=== PATIENT | female | born 1985 | race African-American/Black ===

== ENCOUNTER 2016-12-27 10:36 | Emergency (ER) | payer OTHER ==
[2016-12-27 10:47] VITALS: BP 127/66; PULSE 81; TEMP 99.5; BMI 37.8
--- NOTE | 2016-12-27 11:54 | PDOC ---
History of Present Illness - General Chief Complaint: Cold Symptoms Stated Complaint: STREP THROAT, COUGH Time Seen by Provider: 12/27/16 11:26 History Source: Patient (onset) Exam Limitations: No Limitations - History of Present Illness Initial Comments: 12/27/16 11:51 Patient is here with all of family complaints of chills, fevers, general body aches. 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 4-year-old was sick before and treated 2 weeks ago for strep throat which resolved. Mother was concerned may have recurred or has other illness. She complaints of congestion, runny nose, and cough. Denied fever, has taken no medications 12/27/16 11:52 Timing/Duration: reports: getting worse Severity: reports: mild Associated Symptoms: reports: denies symptoms, facial pain, fever/chills, nasal congestion Past History - Travel Traveled outside of the country in the last 30 days: No Close contact w/someone who was outside of country & ill: No - Past Medical History Allergies/Adverse Reactions: Allergies Allergy/AdvReac Type Severity Reaction Status Date / Time cefaclor [From [facility]] Allergy Verified 12/27/16 10:44 Home Medications: Ambulatory Orders Oseltamivir Phosphate [Tamiflu -] 75 mg PO BID #10 capsule 12/27/16 Asthma: Yes Suicide Attempt (Hx): No - Surgical History Abdominal Surgery: Yes - Family Disease History Family Disease History: Heart Disease: Father ([place] ) - Reproductive History (#): 3 Para: 1 Therapeutic (s) & number: Yes (elective x 1) - Immunization History Td Vaccination: No - Psycho/Social/Smoking Cessation Hx Anxiety: No Suicidal Ideation: No Smoking Status: Yes Smoking History: Current every day smoker Have you smoked in the past 12 months: Yes Number of Cigarettes Smoked Daily: 4 Information on smoking cessation initiated: No Hx Alcohol Use: No Drug/Substance Use Hx: No Substance Use Type: None Hx Substance Use Treatment: No Respiratory Specific PMHX - Complaint Specific PMHX Bronchitis: No Pneumonia: No Review of Systems - Review of Systems Able to Perform ROS?: Yes Is the patient limited Tanzanian proficient: Yes Constitutional: Yes: Symptoms Reported, See HPI, Malaise HEENTM: No: Symptoms Reported Respiratory: Yes: Symptoms reported, See HPI, Cough, Shortness of Breath, Wheezing ABD/GI: Yes: Symptoms Reported, See HPI Musculoskeletal: No: Symptoms Reported Integumentary: Yes: Symptoms Reported, See HPI Neurological: Yes: Symptoms reported, See HPI, Headache All Other Systems: Reviewed and Negative *Physical Exam - Vital Signs Last Vital Signs Temp Pulse Resp BP Pulse Ox 99.5 F 81 18 127/66 97 12/27/16 10:44 12/27/16 10:44 12/27/16 10:44 12/27/16 10:44 12/27/16 10:44 - Physical Exam General Appearance: Yes: Nourished, Appropriately Dressed, Apparent Distress, Mild Distress HEENT: positive: SUMANTH, Normal ENT Inspection, TMs Normal, Pharynx Normal, Pharyngeal Erythema, Nasal Congestion, Rhinorrhea (clear) Neck: positive: Supple, Lymphadenopathy (R), Lymphadenopathy (L). negative: Tender Respiratory/Chest: positive: Lungs Clear (course), Normal Breath Sounds. negative: Rales, Rhonchi, Wheezing Cardiovascular: positive: Regular Rate Gastrointestinal/Abdominal: positive: Normal Bowel Sounds, Soft. negative: Tender Extremity: positive: Normal Capillary Refill, Normal Inspection Integumentary: positive: Normal Color, Dry, Warm, Pale Neurologic: positive: stone chimney mason II-XII NML intact, Fully Oriented, Alert, Normal Mood/ Affect, Normal Response, Motor Strength 5/5 Progress Note - Progress Note Progress Note: Upper respiratory infection, mild. Will check influenza Medical Decision Making - Medical Decision Making 12/27/16 12:41 Influenza test returned negative however daughters and mothers tests were positive for flu a. Will treat as all family lives together and patient complains of same complaints. *DC/Admit/Observation/Transfer Diagnosis at time of Disposition: Influenzal acute upper respiratory infection - Discharge Dispostion Disposition: HOME Condition at time of disposition: Stable Admit: No - Patient Instructions Printed Discharge Instructions: DI for Viral Upper Respiratory Infection -- Adult Additional Instructions: Jennifer's Rest, drink lots of fluids: Teas, water, soups, Pedialyte Saltwater gargles Steamy showers/seem to face break up mucus Old-fashioned treatments help! Avoid contact with others until fevers and cough resolved as this is very contagious Lots of handwashing and good hygiene Continue [id number] medications for symptomatic relief Tylenol or Motrin for fever and pain Take all of Tamiflu as directed: 1 tab every 12 hours for 5 days Followup with private physician in one to 2 days as needed or if worsening Return to emergency department for worsened symptoms, fevers, dehydration Influenza takes between 5 and 7 days for resolution To not participate in any activity, work, or school until fevers and cough are gone for at least one day - Post Discharge Activity Work/School Note: Back to Work
== END 2016-12-27 12:55 | disposition home or self-care (01) ==
LOC: JERFT 10:36
DX: J11.1 Influenza due to unidentified influenza virus with other respiratory manifestations (principal); F17.210 Nicotine dependence, cigarettes, uncomplicated
CPT/HCPCS: 87804; 99281-25

== ENCOUNTER 2020-08-10 07:53 | Emergency (ER) | payer OTHER ==
[2020-08-10] MEDS ORDERED: IBUPROFEN 600 MG TABLET (FP) PO ONE ×2 (08:00→08:24)
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
[2020-08-10 08:03] VITALS: BP 128/94; PULSE 93; TEMP 98.3; BMI 37.0
--- OUTSIDE RECORDS SUMMARY | 2020-08-10 08:25 | XMS ---
:1985 Author Organization [facility] Care Team Providers Name Role Phone ED STAFF PHYSICIAN, STAFF Unavailable Unavailable ED STAFF PHYSICIANSEDRICK Unavailable Unavailable ZUNASSIGNED Unavailable Unavailable ANILA Rausch Unavailable Unavailable Re-disclosure Warning The records that you are about to access may contain information from federally- assisted alcohol or drug abuse programs. If such information is present, then the following federally mandated warning applies: This information has been disclosed to you from records protected by federal confidentiality rules (42 CFR part 2). The federal rules prohibit you from making any further disclosure of this information unless further disclosure is expressly permitted by the written consent of the person to whom it pertains or as otherwise permitted by 42 CFR part 2. A general authorization for the release of medical or other information is NOT sufficient for this purpose. The Federal rules restrict any use of the information to criminally investigate or prosecute any alcohol or drug abuse patient.The records that you are about to access may contain highly sensitive health information, the redisclosure of which is protected by Article 27-F of the [facility] Public Health law. If you continue you may haveaccess to information: Regarding HIV / AIDS; Provided by facilities licensed or operated by the [facility] Office of Mental Health; or Provided by the [facility] Office for People With Developmental Disabilities. If such information is present, then the following [facility] mandated warning applies: This information has been disclosed to you from confidential records which are protected by state law. State law prohibits you from making any further disclosure of this information without the specific written consent of the person to whom it pertains, or as otherwise permitted by law. Any unauthorized further disclosure in violation of state law may result in a fine or assisted sentence or both. A general authorization for the release of medical or other information is NOT sufficient authorization for further disclosure. Allergies and Adverse Reactions Type Description Substance Reaction Status Data Source(s ) Drug allergy Cyclobenzaprine HCl Cyclobenzaprine HCl hives Activ e [facility] ([facility] Drug allergy Cyclobenzaprine HCl Cyclobenzaprine HCl hives Activ e eCW2 ([facility] [employer]) Encounters Encounter Providers Location Date Indications Data Source(s ) Emergency Attender: ANILA Ferrer 07/18/2020 [facility] LAttender: 07:37:00 PM Medical Center STAFF ED STAFF EDT - PHYSICIANAdmitter: 07/18/2020 ANILA GRAFF 11:31:00 PM LReferrer: EDT ZUNASSIGNED [facility] discharged. [facility] 12[facility] [place] [facility] [employer] 10/28/2019 [facility] 12:00:00 AM EST [facility] [place] [employer] [employer] 10/06/2019 [facility]CW[facility] 12:00:00 AM EST [facility] [place] [employer] [employer] Emergency Attender: SEDRICK Ferrer 09/23/2019 [facility] ED STAFF 11:11:00 AM EST Medical C enter PHYSICIANAttend - 09/23/2019 er: STAFF ED 03:30:00 PM EST STAFF PHYSICIANAdmitt er: SEDRICK ED STAFF PHYSICIAN [facility]. [facility]2019 12:00:00 eCW2 ([facility] [place] [facility] [employer] [facility] [facility] Emergency H 08/03/2019 10:50:00 [facility] EDT - 08/03/2019 Cente r 01:21:00 PM EDT Patient discharged. Emergency H 07/14/2019 11:37:00 AM EDT - 019 [facility] 02:56:00 PM EDT Patient discharged. [facility] 07/07/2019 12:00:00 eCW2 ([facility] [place] [facility] AM ED[facility] [employer] [facility]) Emergency H 06/15/2019 10:10:00 [facility] EDT - 06/15/2019 Cente r 01:52:00 PM EDT Patient discharged. Medications Medication Brand Start Product Dose Route Administrative Pharm[facility] Indications Reaction Description Data Name Date Form Instructions Instructions Source(s) MetroGel-Va UNK active 1 eCW2 ginal 0.75 2020 application (P lanned % 12:00: at bedtime [facility] [employer] [facility]) Metronidazo Metron active 1 table t eCW2 le 500 MG idazol 2018 (Planned Oral Tablet e 500 12:00: [facility] MG 00 AM - [facility] [employer] [facility]) Metronidazo Metron active 1 table t eCW2 le 500 MG idazol 2018 (Planned Oral Tablet e 500 12:00: [facility] MG 00 AM - [facility]T [employer]) Metronidazo Metron 08/24/ active 1 table t eCW2 le 500 MG idazol 2018 (Planned Oral Tablet e 500 12:00: Paren [facility] MG 00 AM - [facility]T [employer]) Metronidazo Metron active 1 table t eCW2 le 500 MG idazol 2019 (Planned Oral Tablet e 500 12:00: Paren [facility] MG 00 AM - [facility] [employer]) Insurance Providers Payer name Policy type Policy ID Covered Covered constitution party's Policy P viktoriya / Coverage constitution party ID relationship to Emery Inf ormation type emery [place] [id number] SP [id number] HMO O MVP/HHP O [id number] 01 [id number] 100 MVP Medicaid [id number] S [id number] 01 Managed Care Dental [id number] S [id number] [employer] MKD [place] [id number] S [id number] Vision MKD [facility] [id number] S [id number] 1 FFS Medicaid (DO NOT USE) [id number] S [id number] 01 [facility] Auth PCP Not MVNHC/YHC/GHC [facility] [id number] S [id number] 1 Options MKD Medicaid [id number] S [id number] Regular Clinic Visit [facility] Medicaid [id number] S [id number] Managed Care Problems, Conditions, and Diagnoses Code Display Name Description Problem Type Effective Data Dates Source(s) F17.210 Nicotine NICOTINE Diagnosis 07/18/2020 [facility] dependence, DEPENDENCE, 07:37:00 PM Medical cigarettes, CIGARETTES, EDT Center uncomplicated UNCOMPLICATED J45.909 Unspecified UNSPECIFIED Diagnosis 07/18/2020 [facility] asthma, ASTHMA, 07:37:00 PM Medical uncomplicated UNCOMPLICATED EDT Center K29.70 Gastritis, GASTRITIS, Diagnosis 07/18/2020 [facility] unspecified, UNSPECIFIED, 07:37:00 PM Medical without bleeding WITHOUT BLEEDING EDT Ce nter R10.9 Unspecified UNSPECIFIED Diagnosis 07/18/2020 [facility] abdominal pain ABDOMINAL PAIN 07:37:00 PM Medic al EDT Center R42 Dizziness and DIZZINESS AND Diagnosis 09/23/2019 [facility] giddiness GIDDINESS 11:11:00 AM Medical EST Center R11.2 Nausea with NAUSEA WITH Diagnosis 09/23/2019 [facility] vomiting, VOMITING, 11:11:00 AM Medical unspecified UNSPECIFIED EST Center J40 Bronchitis, not BRONCHITIS, NOT Diagnosis 08/03/2019 [facility] specified as acute SPECIFIED ACUTE 10:50:00 AM Medical or chronic OR CHRONIC EDT Center J03.90 Acute tonsillitis, ACUTE TONSILLITIS, Diagnosis 9 [facility] unspecified UNSPECIFIED 10:50:00 AM Medical EDT Center R05 Cough COUGH Diagnosis 08/03/2019 [facility] 10:50:00 AM Medical EDT Center N39.0 Urinary tract URINARY TRACT Diagnosis 07/14/2019 [facility] infection, site INFECTION, SITE 11:37:00 AM Med ical not specified NOT SPECIFIED EDT Center R11.10 Vomiting, VOMITING, Diagnosis 07/14/2019 [facility] unspecified UNSPECIFIED 11:37:00 AM Medical EDT Center I10 Essential ESSENTIAL Diagnosis 06/15/2019 [facility] (primary) (PRIMARY) 10:10:00 AM Medical hypertension HYPERTENSION EDT Center L84 Corns and CORNS AND Diagnosis 06/15/2019 [facility] callosities CALLOSITIES 10:10:00 AM Medical EDT Center Y99.9 Unspecified UNSPECIFIED Diagnosis 06/15/2019 [facility] external cause EXTERNAL CAUSE 10:10:00 AM Medic al status STATUS EDT Center Y92.[address] IN UNSP Diagnosis 06/15/2019 [facility] in unspecified NON-INSTITUT 10:10:00 AM Medical non-institutional (PRIVATE) EDT Center (private) RESIDENCE PLACE residence as the place of occurrence of the external cause Y93.01 Activity, walking, ACTIVITY, WALKING, Diagnosis 9 [facility] marching and MARCHING AND 10:10:00 AM Medical hiking HIKING EDT Center X58.XXXA Exposure to other EXPOSURE TO OTHER Diagnosis 06/15/2019 [facility] specified factors, SPECIFIED FACTORS, 10:10:00 AM Medical initial encounter INITIAL ENCOUNTER EDT Center S90.852A Superficial SUPERFICIAL Diagnosis 06/15/2019 [facility] foreign body, left FOREIGN BODY, LEFT 10:10:00 AM Medical foot, initial FOOT, INITIAL EDT Center encounter ENCOUNTER M79.673 Pain in PAIN IN Diagnosis 06/15/2019 [facility] unspecified foot UNSPECIFIED FOOT 10:10:00 AM edical EDT Center Surgeries/Procedures Procedure Description Date Indications Data Source(s) [facility] 05/29/2020 eCW2 ([facility] 12:00:00 AM [facility]) CHLAMYDIA, MEHRAN 05/29/2020 eCW2 ([facility] 12:00:00 AM EDT [facility] [employer]) GONORRHEA, MEHRAN 05/29/2020 eCW2 ([facility] 12:00:00 AM EDT [facility] [employer]) SPECIMEN HANDLING 05/29/2020 eCW2 (Plan [facility] 12:00:00 AM EDT [facility] [employer]) Wet [facility] 10/28/2019 eCW2 ([facility]anned 12:00:00 AM EST [facility] [place] [employer] [facility]) HIV Rapid Test INSTI 08/24/2019 eCW2 (P lanned 12:00:00 AM EDT [facility] [place] [employer] [facility]) CHLAMYDIA, MEHRAN 08/24/2019 eCW2 ([facility]anned 12:00:00 AM EDT [facility] [employer] [facility]) GONORRHEA, MEHRAN 08/24/2019 eCW2 ([facility] 12:00:00 AM EDT [facility] [employer]) [place] 07/07/2019 eCW2 ([facility]anned 12:00:00 AM EDT [facility] [employer] [facility]) CHLAMYDIA, MEHRAN 07/07/2019 eCW2 ([facility]anned 12:00:00 AM EDT [facility] [employer]) Results ID Date Data Source HematologyRou.[id number] 07/18/2020 09:50:00 PM EDT [facility] 0400 Name Value Range Interpretation Description Data Sup porting Code Source(s) Document(s ) Leukocytes 4.4-11.0 Above high <content [facility] [#/volume] in normal styleCode="Bold [facility] Blood by ">White Blood Medical Automated count Cell Count Center </content>11.94 KCUMM H<content styleCode="Ital ics"> (4.4-11.0 KCUMM)</content > Hemoglobin 12.3-16. <content [facility] [Mass/volume] in 0 styleCode="Bold [facility] Blood ">Hemoglobin Medical </content>13.4 Center G/DL<content styleCode="Ital ics"> (12.3-16.0 G/DL)</content> Erythrocytes 4.0-5.1 <content [facility] [#/volume] in styleCode="Bold [facility] Blood by ">Red Blood Medical Automated count Cell Count Center </content>4.54 MCUMM<content styleCode="Ital ics"> (4.0-5.1 MCUMM)</content > Hematocrit 36.0-46. <content [facility] [Volume 0 styleCode="Bold [facility] Fraction] of ">Hematocrit Medical Blood by </content>40.7 Center Automated count %<content styleCode="Ital ics"> (36.0-46.0 %)</content> Erythrocyte mean 32.0-37. <content [facility] corpuscular 0 styleCode="Bold [facility] hemoglobin ">Mean Corpus. Medical concentration Hgb Center [Mass/volume] by Concentration Automated count (MCHC) </content>32.9 G/DL<content styleCode="Ital ics"> (32.0-37.0 G/DL)</content> Erythrocyte mean 80.0-100 <content [facility] corpuscular .0 styleCode="Bold [facility] volume [Entitic ">Mean Medical volume] by Corpuscular Center Automated count Volume </content>89.6 FL<content styleCode="Ital ics"> (80.0-100.0 FL)</content> Erythrocyte 11.5-14. <content [facility] distribution 5 styleCode="Bold [facility] width [Ratio] by ">Red Cell Medical Automated count Distribution Center Width </content>12.1 %<content styleCode="Ital ics"> (11.5-14.5 %)</content> Erythrocyte mean 26.0-34. <content [facility] corpuscular 0 styleCode="Bold [facility] hemoglobin ">Mean Medical [Entitic mass] Corposcular Center by Automated Hemoglobin count </content>29.5 PG<content styleCode="Ital ics"> (26.0-34.0 PG)</content> Platelets 130-400 <content [facility] [#/volume] in styleCode="Bold [facility] Blood by ">Platelet Medical Automated count Count Center </content>344 KCUMM<content styleCode="Ital ics"> (130-400 KCUMM)</content > Platelet mean 8.0-11.0 <content [facility] volume [Entitic styleCode="Bold [facility] volume] in Blood ">Mean Platelet Medical by Automated Volume Center count </content>9.0 FL<content styleCode="Ital ics"> (8.0-11.0 FL)</content> UNK 0.0 <content [facility] styleCode="Bold [facility] ">Nucleated Red Medical Blood Cell Center Count </content>0.00 KCUMM<content styleCode="Ital ics"> (0.0 KCUMM)</content > UNK 0 <content [facility] styleCode="Bold [facility] ">Nucleated Red Medical Blood Cell Center </content>0.0 /100<content styleCode="Ital ics"> (0 /100)</content> ID Date Data Source GFR(Creatinine).[id number] 07/18/2020 09:50:00 PM EDT [facility] 0-0400 Name Value Range Interpretation Code Description Data Mabel rce(s) Supporting Document(s ) UNK > 60 <content [facility] styleCode="Bold"> Medical Cent er EGFR </content>236 GFR<content styleCode="Italic s"> (> 60 GFR)</content> ID Date Data Source [id number] 07/18/2020 09:50:00 PM EDT [facility] Name Value Range Interpretation Description Data Sup porting Code Source(s) Document(s ) Potassium 3.5-5.3 <content [facility] [Moles/volume] styleCode="Jaquelin Latos[facility] in Serum or d">Potassium Medical Plasma </content>4.2 Center MEQ/L<content styleCode="Danielle lics"> (3.5-5.3 MEQ/L)</conten t> Chloride 98-107 Above high normal <content [facility] [Moles/volume] styleCode="[facility] in Serum or d">Chloride Medical Plasma </content>108 Center MEQ/L H<content styleCode="Danielle lics"> (98-107 MEQ/L)</conten t> Sodium 137-145 <content [facility] [Moles/volume] styleCode="[facility] in Serum or d">Sodium Medical Plasma </content>139 Center MEQ/L<content styleCode="Danielle lics"> (137-145 MEQ/L)</conten t> Creatinine 0.5-1.3 Below low normal <content [facility] [Mass/volume] styleCode="[facility] in Serum or d">Creatinine Medical Plasma </content>0.4 Center MG/DL L<content styleCode="Danielle lics"> (0.5-1.3 MG/DL)</conten t> Glucose 74-106 Above high normal <content [facility] [Mass/volume] styleCode="[facility] [place] in Serum or d">Glucose Medical Plasma </content>135 Center MG/DL H<content styleCode="Danielle lics"> (74-106 MG/DL)</conten t> UNK 7-17 <content [facility] styleCode="[facility] d">BUN Medical </content>13 Center MG/DL<content styleCode="Danielle lics"> (7-17 MG/DL)</conten t> Carbon 22-30 Below low normal <content [facility] dioxide, total styleCode="[facility] [place] [Moles/volume] d">Carbon Medical in Serum or Dioxide Center Plasma </content>19 MEQ/L L<content styleCode="Dnaielle lics"> (22-30 MEQ/L)</conten t> Calcium 8.4-10.2 <content [facility] [Mass/volume] styleCode="[facility] in Serum or d">Calcium Medical Plasma </content>10.1 Center MG/DL<content styleCode="Danielle lics"> (8.4-10.2 MG/DL)</conten t> UNK > 60 <content [facility] styleCode="[facility] d">EGFR Medical </content>236 Center GFR<content styleCode="Danielle lics"> (> 60 GFR)</content> ID Date Data Source Urinalysis.[id number] 07/18/2020 09:05:00 PM EDT [facility] 0 Name Value Range Interpretation Description Data Sup porting Code Source(s) Document(s ) UNK NEGATIVE <content [facility] styleCode="[facility]aqu[facility] d">Urine Medical Bilirubin Center </content>NEGA TIVE <content styleCode="Danielle lics"> (NEGATIVE )</content> Color of Urine YELLOW <content [facility] styleCode="Jaqu[facility] d">Color, Medical Urine Center </content>YELL OW <content styleCode="Danielle lics"> (YELLOW )</content> Glucose NEGATIVE <content [facility] [Mass/volume] styleCode="[facility] in Urine by d">Urine Medical Test strip Glucose Center </content>NEGA TIVE MG/DL<content styleCode="Danielle lics"> (NEGATIVE MG/DL)</conten t> UNK CLEAR <content [facility] styleCode="[facility] [place] d">Urine Medical Clarity Center </content>RADHA R <content styleCode="Danielle lics"> (CLEAR )</content> Specific 1.015-1.02 Above high <content [facility] gravity of 5 normal styleCode="[facility] Urine by Test d">Urine Medical strip Specific Center [place] </content>>= 1.030 H<content styleCode="Danielle lics"> (1.015-1.025 )</content> Hemoglobin NEGATIVE <content [facility] [Presence] in styleCode="Jaquelin Reina Urine by Test d">Urine Blood Medical strip </content>SMAL Center L <content styleCode="Danielle lics"> (NEGATIVE )</content> Protein NEGATIVE <content [facility] [Mass/volume] styleCode="[facility] in Urine by d">Urine Medical Test strip Protein Center </content>100 MG/DL<content styleCode="Danielle lics"> (NEGATIVE MG/DL)</conten t> pH of Urine by 4.5-8.0 <content [facility] Test strip styleCode="[facility] [place] d">Urine pH Medical </content>6.0 Center <content styleCode="Danielle lics"> (4.5-8.0 )</content> Ketones NEGATIVE <content [facility] [Mass/volume] styleCode="[facility] in Urine by d">Urine Medical Test strip Ketone Center </content>40 MG/DL<content styleCode="Danielle lics"> (NEGATIVE MG/DL)</conten t> UNK NONE SEEN <content Saint styleCode="[facility] [place] d">Epithelial Medical Cell Center </content>5 - 10 HPF<content styleCode="Danielle lics"> (NONE SEEN HPF)</content> Leukocyte NEGATIVE <content [facility] esterase styleCode="[facility] [Presence] in d">Urine Medical Urine by Test Leukocyte Center strip </content>NEGA TIVE <content styleCode="Danielle lics"> (NEGATIVE )</content> Nitrite NEGATIVE <content [facility] [Presence] in styleCode="[facility]aquelin Reina Urine by Test d">Urine Medical strip Nitrite Center </content>NEGA TIVE <content styleCode="Danielle lics"> (NEGATIVE )</content> UNK 0-3 <content [facility] styleCode="[facility] [place] d">Urine White Medical Blood Cell Center </content>10 - 20 HPF<content styleCode="Danielle lics"> (0-3 HPF)</content> Urobilinogen 0.2-1.0 <content [facility] [Units/volume] styleCode="[facility] in Urine by d">Urine Medical Test strip Urobilinogen Center </content>0.2 MG/DL<content styleCode="Danielle lics"> (0.2-1.0 MG/DL)</conten t> ID Date Data Source [id number] 07/18/2020 09:05:00 PM EDT [facility] -0400 Name Value Range Interpretation Description Data Sup porting Code Source(s) Document(s ) Cannabinoids <content [facility] [Presence] in styleCode="[facility]elin [facility] Urine by Screen d">Cannabinoid Medical method >50 ng/mL s Center </content>PRES UMPTIVE POSITIVE NG/ML (Reference Range: not available)<br/ > ID Date Data Source [id number] 03/16/2020 12:00:00 AM EDT [facility] Name Value Range Interpretation Code Description Data Mabel rce(s) Supporting Document(s ) 2018-nCoV [facility] RNA XXX MEHRAN+probe- Imp This lab was ordered by [facility] and reported by [employer] ID Date Data Source Urinalysis.[id number] 09/23/2019 12:40:00 PM EST [facility] 0 Name Value Range Interpretation Description Data Sup porting Code Source(s) Document(s ) Color of Urine YELLOW <content [facility] styleCode="Jaquelin Latosha d">Color, Medical Urine Center </content>YELL OW <content styleCode="Danielle lics"> (YELLOW )</content> UNK CLEAR <content [facility] styleCode="[facility] [place] d">Urine Medical Clarity Center </content>RADHA R <content styleCode="Danielle lics"> (CLEAR )</content> Glucose NEGATIVE <content [facility] [Mass/volume] styleCode="[facility]elin [facility] in Urine by d">Urine Medical Test strip Glucose Center </content>NEGA TIVE MG/DL<content styleCode="Danielle lics"> (NEGATIVE MG/DL)</conten t> UNK NEGATIVE <content Saint styleCode="[facility] [place] d">Urine Medical Bilirubin Center </content>SMAL L <content styleCode="Danielle lics"> (NEGATIVE )</content> Ketones NEGATIVE <content [facility] [Mass/volume] styleCode="[facility] in Urine by d">Urine Medical Test strip Ketone Center </content>40 MG/DL<content styleCode="Danielle lics"> (NEGATIVE MG/DL)</conten t> Hemoglobin NEGATIVE <content [facility] [Presence] in styleCode="Jaquelin [facility]ina Urine by Test d">Urine Blood Medical strip </content>SMAL Center L <content styleCode="Danielle lics"> (NEGATIVE )</content> Specific 1.015-1.02 Above high <content [facility] gravity of 5 normal styleCode="Jaquelin Reina Urine by Test d">Urine Medical strip Specific Center [place] </content>>= 1.030 H<content styleCode="Danielle lics"> (1.015-1.025 )</content> Protein NEGATIVE <content [facility] [Mass/volume] styleCode="Jaquelin Reina in Urine by d">Urine Medical Test strip Protein Center </content>100 MG/DL<content styleCode="Danielle lics"> (NEGATIVE MG/DL)</conten t> pH of Urine by 4.5-8.0 <content [facility] Test strip styleCode="[facility] [place] d">Urine pH Medical </content>6.0 Center <content styleCode="Danielle lics"> (4.5-8.0 )</content> Urobilinogen 0.2-1.0 <content [facility] [Units/volume] styleCode="Jaquelin [facility] in Urine by d">Urine Medical Test strip Urobilinogen Center </content>0.2 MG/DL<content styleCode="Danielle lics"> (0.2-1.0 MG/DL)</conten t> UNK 0-3 <content Saint styleCode="Jaquelin Latosha d">Urine Red Medical Blood Cell Center </content>10 - 20 HPF<content styleCode="Danielle lics"> (0-3 HPF)</content> Leukocyte NEGATIVE <content [facility] esterase styleCode="[facility] [place] [Presence] in d">Urine Medical Urine by Test Leukocyte Center strip </content>NEGA TIVE <content styleCode="Danielle lics"> (NEGATIVE )</content> Nitrite NEGATIVE <content Saint [Presence] in styleCode="[facility] [place] Urine by Test d">Urine Medical strip Nitrite Center </content>NEGA TIVE <content styleCode="Danielle lics"> (NEGATIVE )</content> UNK NONE SEEN <content Saint styleCode="Jaquelin Latosha d">Urine Mucus Medical </content>MANY Center HPF<content styleCode="Danielle lics"> (NONE SEEN HPF)</content> UNK 0-3 <content Saint styleCode="Jaquelin Latosha d">Urine White Medical Blood Cell Center </content>5 - 10 HPF<content styleCode="Danielle lics"> (0-3 HPF)</content> UNK NONE SEEN <content Saint styleCode="Jaquelin Latosha d">Epithelial Medical Cell Center </content>2-5 HPF<content styleCode="Danielle lics"> (NONE SEEN HPF)</content> ID Date Data Source Microbiology.[id number] 09/23/2019 12:40:00 PM EST [facility] 500 Name Value Range Interpretation Code Description Data Mabel rce(s) Supporting Document(s ) UNK <item><content [facility] styleCode="Bold"> Medical Cent er Culture Status </content>
<t able><tbody><tr>< td>Specimen Number:</td><td>[id number]</td></tr ><tr><td>Sample Collection Date/Time: </td><td>09/23/20 12:40 PM</td></tr><tr>< td>Specimen Source:</td><td>U RINE</td></tr><tr ><td>Culture Status:</td><td>P reliminary </td></tr><tr><td >Culture Report:</td><td>C ulture in progress </td></tr><tr><td >Urine Culture:</td><td> Collection Plate Date: 09/23/2019 12:49 </td></tr></tbody ></table></item> UNK <item><content [facility] styleCode="Bold"> Medical [facility] Culture Report </content>
<t able><tbody><tr>< td>Specimen Number:</td><td>[id number]</td></tr ><tr><td>Sample Collection Date/Time: </td><td>09/23/20 12:40 PM</td></tr><tr>< td>Specimen Source:</td><td>U RINE</td></tr><tr ><td>Urine Culture:</td><td> Collection Plate Date: 09/23/2019 12:49 </td></tr><tr><td >Culture Status:</td><td>P reliminary </td></tr><tr><td >Culture Report:</td><td>C ulture in progress </td></tr></tbody ></table></item> ID Date Data Source Liver 09/23/2019 12:10:[address] [facility] Profile.[id number] Name Value Range Interpretation Description Data Sup porting Code Source(s) Document(s ) Aspartate 14-36 <content [facility] aminotransferase styleCode="Bold"> Paul hs [Enzymatic Aspartate Medical activity/volume] Aminotransferase Center in Serum or Plasma (AST) </content>22 IU/L<content styleCode="Italic s"> (14-36 IU/L)</content> Alanine 7-30 <content [facility] aminotransferase styleCode="Bold"> Paul hs [Enzymatic Alanine Medical activity/volume] Aminotransferase Center in Serum or Plasma (ALT) </content>28 IU/L<content styleCode="Italic s"> (7-30 IU/L)</content> UNK 0.0-0.3 <content Saint styleCode="Bold"> [facility] Bilirubin, Direct Medical </content>< 0.2 Center MG/DL<content styleCode="Italic s"> (0.0-0.3 MG/DL)</content> Alkaline 38-126 <content Saint phosphatase styleCode="Bold"> [facility] [Enzymatic Alkaline Medical activity/volume] Phosphatase (ALP) Cente r in Serum or Plasma </content>72 IU/L<content styleCode="Italic s"> (38-126 IU/L)</content> Bilirubin.total 0.2-1.3 <content [facility] [Mass/volume] in styleCode="Bold"> [facility] Serum or Plasma Bilirubin Total Medical </content>0.4 Center MG/DL<content styleCode="Italic s"> (0.2-1.3 MG/DL)</content> Albumin 3.5-5.0 <content [facility] [Mass/volume] in styleCode="Bold"> [facility] Serum or Plasma Albumin Medical </content>4.6 Center G/DL<content styleCode="Italic s"> (3.5-5.0 G/DL)</content> ID Date Data Source HematologyRou.[id number] 09/23/2019 12:10:00 PM SUMA Herrera nt [facility] 0500 Name Value Range Interpretation Description Data Sup porting Code Source(s) Document(s ) Erythrocytes 4.0-5.1 <content [facility] [#/volume] in styleCode="Bold [facility] Blood by ">Red Blood Medical Automated count Cell Count Center </content>4.34 MCUMM<content styleCode="Ital ics"> (4.0-5.1 MCUMM)</content > Leukocytes 4.4-11.0 Above high <content Saint [#/volume] in normal styleCode="Bold [facility] Blood by ">White Blood Medical Automated count Cell Count Center </content>15.65 KCUMM H<content styleCode="Ital ics"> (4.4-11.0 KCUMM)</content > Erythrocyte mean 80.0-100 <content [facility] corpuscular .0 styleCode="Bold Latosha volume [Entitic ">Mean Medical volume] by Corpuscular Center Automated count Volume </content>89.9 FL<content styleCode="Ital ics"> (80.0-100.0 FL)</content> Hemoglobin 12.3-16. <content [facility] [Mass/volume] in 0 styleCode="Bold [facility] Blood ">Hemoglobin Medical </content>13.1 Center G/DL<content styleCode="Ital ics"> (12.3-16.0 G/DL)</content> Hematocrit 36.0-46. <content [facility] [Volume 0 styleCode="Bold Lat[facility] Fraction] of ">Hematocrit Medical Blood by </content>39.0 Center Automated count %<content styleCode="Ital ics"> (36.0-46.0 %)</content> Erythrocyte 11.5-14. <content [facility] distribution 5 styleCode="Bold [facility] width [Ratio] by ">Red Cell Medical Automated count Distribution Center Width </content>12.4 %<content styleCode="Ital ics"> (11.5-14.5 %)</content> Erythrocyte mean 26.0-34. <content [facility] corpuscular 0 styleCode="Bold [facility] hemoglobin ">Mean Medical [Entitic mass] Corposcular Center by Automated Hemoglobin count </content>30.2 PG<content styleCode="Ital ics"> (26.0-34.0 PG)</content> Erythrocyte mean 32.0-37. <content [facility] corpuscular 0 styleCode="Bold [facility] hemoglobin ">Mean Corpus. Medical concentration Hgb Center [Mass/volume] by Concentration Automated count (MCHC) </content>33.6 G/DL<content styleCode="Ital ics"> (32.0-37.0 G/DL)</content> Platelet mean 8.0-11.0 <content Saint volume [Entitic styleCode="Bold Lat[facility]ha volume] in Blood ">Mean Platelet Medical by Automated Volume Center count </content>8.7 FL<content styleCode="Ital ics"> (8.0-11.0 FL)</content> Platelets 130-400 <content Saint [#/volume] in styleCode="Bold [facility] Blood by ">Platelet Medical Automated count Count Center </content>349 KCUMM<content styleCode="Ital ics"> (130-400 KCUMM)</content > UNK 0 <content Saint styleCode="Bold Latosha ">Nucleated Red Medical Blood Cell Center </content>0.0 /100<content styleCode="Ital ics"> (0 /100)</content> UNK 0.0 <content Saint styleCode="Bold Latosha ">Nucleated Red Medical Blood Cell Center Count </content>0.00 KCUMM<content styleCode="Ital ics"> (0.0 KCUMM)</content > ID Date Data Source GFR(Creatinine).[id number] 09/23/2019 12:10:00 PM [facility] 0-0500 Name Value Range Interpretation Code Description Data Mabel rce(s) Supporting Document(s ) UNK > 60 <content [facility] styleCode="Bold"> Medical Cent er EGFR </content>152 GFR<content styleCode="Italic s"> (> 60 GFR)</content> ID Date Data Source CHMROUTINECCDA.[id number] 09/23/2019 12:10:00 PM [facility] -0500 Name Value Range Interpretation Description Data Sup porting Code Source(s) Document(s ) Lipase 23-300 <content [facility] [Enzymatic styleCode="Bold Medical activity/vo ">Lipase Center lume] in </content>204 Serum or IU/L<content Plasma styleCode="Ital ics"> (23-300 IU/L)</content> UNK 30-110 <content [facility] styleCode="Bold Medical ">Amylase Center </content>86 IU/L<content styleCode="Ital ics"> (30-110 IU/L)</content> ID Date Data Source [facility].[id number] 09/23/2019 12:10:00 PM EST [facility] Center Name Value Range Interpretation Description Data Sup porting Code Source(s) Document(s ) Sodium 137-145 <content [facility] [Moles/volume] in styleCode="Bold"> [facility] Serum or Plasma Sodium Medical </content>141 Center MEQ/L<content styleCode="Italic s"> (137-145 MEQ/L)</content> Potassium 3.5-5.3 <content [facility] [Moles/volume] in styleCode="Bold"> [facility] Serum or Plasma Potassium Medical </content>3.7 Center MEQ/L<content styleCode="Italic s"> (3.5-5.3 MEQ/L)</content> Creatinine 0.5-1.3 <content [facility] [Mass/volume] in styleCode="Bold"> [facility] Serum or Plasma Creatinine Medical </content>0.5 Center MG/DL<content styleCode="Italic s"> (0.5-1.3 MG/DL)</content> Chloride 98-107 <content [facility] [Moles/volume] in styleCode="Bold"> [facility] Serum or Plasma Chloride Medical </content>103 Center MEQ/L<content styleCode="Italic s"> (98-107 MEQ/L)</content> Carbon dioxide, 22-30 <content [facility] total styleCode="Bold"> [facility] [Moles/volume] in Carbon Dioxide Medical Serum or Plasma </content>27 Center MEQ/L<content styleCode="Italic s"> (22-30 MEQ/L)</content> UNK 7-17 <content [facility] styleCode="Bold"> [facility] BUN </content>13 Medical MG/DL<content Center styleCode="Italic s"> (7-17 MG/DL)</content> Calcium 8.4-10. <content [facility] [Mass/volume] in 2 styleCode="Bold"> [facility] Serum or Plasma Calcium Medical </content>9.9 Center MG/DL<content styleCode="Italic s"> (8.4-10.2 MG/DL)</content> Glucose 74-106 Above high <content [facility] [Mass/volume] in normal styleCode="Bold"> [facility] Serum or Plasma Glucose Medical </content>113 Center MG/DL H<content styleCode="Italic s"> (74-106 MG/DL)</content> UNK > 60 <content [facility] styleCode="Bold"> [facility] EGFR Medical </content>152 Center GFR<content styleCode="Italic s"> (> 60 GFR)</content> Aspartate 14-36 <content [facility] aminotransferase styleCode="Bold"> [facility] [Enzymatic Aspartate Medical activity/volume] Aminotransferase Center in Serum or Plasma (AST) </content>22 IU/L<content styleCode="Italic s"> (14-36 IU/L)</content> Alanine 7-30 <content [facility] aminotransferase styleCode="Bold"> [facility] [Enzymatic Alanine Medical activity/volume] Aminotransferase Center in Serum or Plasma (ALT) </content>28 IU/L<content styleCode="Italic s"> (7-30 IU/L)</content> Albumin 3.5-5.0 <content [facility] [Mass/volume] in styleCode="Bold"> [facility] Serum or Plasma Albumin Medical </content>4.6 Center G/DL<content styleCode="Italic s"> (3.5-5.0 G/DL)</content> Bilirubin.total 0.2-1.3 <content [facility] [Mass/volume] in styleCode="Bold"> [facility] Serum or Plasma Bilirubin Total Medical </content>0.4 Center MG/DL<content styleCode="Italic s"> (0.2-1.3 MG/DL)</content> Alkaline 38-126 <content [facility] phosphatase styleCode="Bold"> [facility] [Enzymatic Alkaline Medical activity/volume] Phosphatase (ALP) Cente r in Serum or Plasma </content>72 IU/L<content styleCode="Italic s"> (38-126 IU/L)</content> ID Date Data Source Gonorrhea, MEHRAN.1 08/24/2019 12:00:00 AM EDT eCW2 ([facility]) Name Value Range Interpretation Description Data Source(s ) Supporting Code Document(s ) Negative Negative Neisseria eCW2 (Planned gonorrhoeae, [facility] [employer] [facility]) ID Date Data Source Chlamydia, MEHRAN.0 08/24/2019 12:00:00 AM EDT eCW2 ([facility]) Name Value Range Interpretation Description Data Source(s ) Supporting Code Document(s ) Negative Negative Chlamydia eCW2 (Planned trachomatis, [facility] [employer] [facility]) ID Date Data Source Urinalysis.[id number] 07/14/2019 01:58:00 PM EDT [facility] 0 Name Value Range Interpretation Description Data Sup porting Code Source(s) Document(s ) UNK CLEAR <content Saint styleCode="Jaquelin Latosha d">Urine Medical Clarity Center </content>RADHA R <content styleCode="Danielle lics"> (CLEAR )</content> Color of Urine YELLOW <content Saint styleCode="Jaquelin Latosha d">Color, Medical Urine Center </content>YELL OW <content styleCode="Danielle lics"> (YELLOW )</content> Specific 1.015-1.02 Above high <content Saint gravity of 5 normal styleCode="Jaquelin Latosha Urine by Test d">Urine Medical strip Specific Center [place] </content>>= 1.030 H<content styleCode="Danielle lics"> (1.015-1.025 )</content> Glucose NEGATIVE <content Saint [Mass/volume] styleCode="Jaquelin Latosha in Urine by d">Urine Medical Test strip Glucose Center </content>NEGA TIVE MG/DL<content styleCode="Danielle lics"> (NEGATIVE MG/DL)</conten t> UNK NEGATIVE <content Saint styleCode="Jaquelin Latosha d">Urine Medical Bilirubin Center </content>SMAL L <content styleCode="Danielle lics"> (NEGATIVE )</content> Ketones NEGATIVE <content Saint [Mass/volume] styleCode="Jaquelin Latosha in Urine by d">Urine Medical Test strip Ketone Center </content>>=80 MG/DL<content styleCode="Danielle lics"> (NEGATIVE MG/DL)</conten t> Hemoglobin NEGATIVE <content Saint [Presence] in styleCode="[place]aqu[place] Urine by Test d">Urine Blood Medical strip </content>TRAC Center E <content styleCode="Danielle lics"> (NEGATIVE )</content> Leukocyte NEGATIVE <content [facility] esterase styleCode="[place]elin [place] [Presence] in d">Urine Medical Urine by Test Leukocyte Center strip </content>NEGA TIVE <content styleCode="Danielle lics"> (NEGATIVE )</content> Protein NEGATIVE <content Saint [Mass/volume] styleCode="Jaquelin Latosha in Urine by d">Urine Medical Test strip Protein Center </content>100 MG/DL<content styleCode="Danielle lics"> (NEGATIVE MG/DL)</conten t> pH of Urine by 4.5-8.0 <content Saint Test strip styleCode="[place] d">Urine pH Medical </content>6.0 Center <content styleCode="Danielle lics"> (4.5-8.0 )</content> Urobilinogen 0.2-1.0 <content Saint [Units/volume] styleCode="[place] in Urine by d">Urine Medical Test strip Urobilinogen Center </content>0.2 MG/DL<content styleCode="Danielle lics"> (0.2-1.0 MG/DL)</conten t> Nitrite NEGATIVE <content Saint [Presence] in styleCode="[place] Urine by Test d">Urine Medical strip Nitrite Center </content>NEGA TIVE <content styleCode="Danielle lics"> (NEGATIVE )</content> UNK <content Saint styleCode="Jaquelin Latosha d">Epithelial Medical Cell Center </content>10 - 20 LPF (Reference Range: not available)<br/ > UNK 0-3 <content Saint styleCode="Jaquelin Latosha d">Urine White Medical Blood Cell Center </content>0-3 HPF<content styleCode="Danielle lics"> (0-3 HPF)</content> UNK NONE SEEN <content Saint styleCode="Jaquelin Latosha d">Urine Mucus Medical </content>MANY Center LPF<content styleCode="Danielle lics"> (NONE SEEN LPF)</content> UNK 0-3 <content Saint styleCode="Jaquelin Latosha d">Urine Red Medical Blood Cell Center </content>3-5 HPF<content styleCode="Danielle lics"> (0-3 HPF)</content> ID Date Data Source Liver 07/14/2019 12:29:[address] [facility] Profile.[id number] Name Value Range Interpretation Description Data Sup porting Code Source(s) Document(s ) Alanine 7-30 <content [facility] aminotransferase styleCode="Bold"> [facility] [Enzymatic Alanine Medical activity/volume] Aminotransferase Center in Serum or Plasma (ALT) </content>17 IU/L<content styleCode="Italic s"> (7-30 IU/L)</content> Alkaline 38-126 <content [facility] phosphatase styleCode="Bold"> [facility] [Enzymatic Alkaline Medical activity/volume] Phosphatase (ALP) Cente r in Serum or Plasma </content>61 IU/L<content styleCode="Italic s"> (38-126 IU/L)</content> Aspartate 14-36 <content [facility] aminotransferase styleCode="Bold"> [facility] [Enzymatic Aspartate Medical activity/volume] Aminotransferase Center in Serum or Plasma (AST) </content>18 IU/L<content styleCode="Italic s"> (14-36 IU/L)</content> Albumin 3.5-5.0 <content [facility] [Mass/volume] in styleCode="Bold"> [facility] Serum or Plasma Albumin Medical </content>4.7 Center G/DL<content styleCode="Italic s"> (3.5-5.0 G/DL)</content> Bilirubin.total 0.2-1.3 <content [facility] [Mass/volume] in styleCode="Bold"> [facility] Serum or Plasma Bilirubin Total Medical </content>0.4 Center MG/DL<content styleCode="Italic s"> (0.2-1.3 MG/DL)</content> UNK 0.0-0.3 <content [facility] styleCode="Bold"> [facility] Bilirubin, Direct Medical </content>< 0.2 Center MG/DL<content styleCode="Italic s"> (0.0-0.3 MG/DL)</content> ID Date Data Source HematologyRou.[id number] 07/14/2019 12:29:00 PM EDT [facility] 0400 Name Value Range Interpretation Description Data Sup porting Code Source(s) Document(s ) Erythrocytes 4.0-5.1 <content [facility] [#/volume] in styleCode="Bold [facility] Blood by ">Red Blood Medical Automated count Cell Count Center </content>4.57 MCUMM<content styleCode="Ital ics"> (4.0-5.1 MCUMM)</content > Leukocytes 4.4-11.0 Above high <content Saint [#/volume] in normal styleCode="Bold Lat[facility] Blood by ">White Blood Medical Automated count Cell Count Center </content>16.97 KCUMM H<content styleCode="Ital ics"> (4.4-11.0 KCUMM)</content > Hematocrit 36.0-46. <content [facility] [Volume 0 styleCode="Bold Latosha Fraction] of ">Hematocrit Medical Blood by </content>40.3 Center Automated count %<content styleCode="Ital ics"> (36.0-46.0 %)</content> Hemoglobin 12.3-16. <content [facility] [Mass/volume] in 0 styleCode="Bold Latosha Blood ">Hemoglobin Medical </content>13.8 Center G/DL<content styleCode="Ital ics"> (12.3-16.0 G/DL)</content> Erythrocyte mean 80.0-100 <content [facility] corpuscular .0 styleCode="Bold Latosha volume [Entitic ">Mean Medical volume] by Corpuscular Center Automated count Volume </content>88.2 FL<content styleCode="Ital ics"> (80.0-100.0 FL)</content> Erythrocyte mean 26.0-34. <content [facility] corpuscular 0 styleCode="Bold Latosha hemoglobin ">Mean Medical [Entitic mass] Corposcular Center by Automated Hemoglobin count </content>30.2 PG<content styleCode="Ital ics"> (26.0-34.0 PG)</content> Erythrocyte 11.5-14. <content [facility] distribution 5 styleCode="Bold Latosha width [Ratio] by ">Red Cell Medical Automated count Distribution Center Width </content>12.7 %<content styleCode="Ital ics"> (11.5-14.5 %)</content> Platelets 130-400 <content Saint [#/volume] in styleCode="Bold Lat[facility] Blood by ">Platelet Medical Automated count Count Center </content>337 KCUMM<content styleCode="Ital ics"> (130-400 KCUMM)</content > Platelet mean 8.0-11.0 <content Saint volume [Entitic styleCode="Bold Latosha volume] in Blood ">Mean Platelet Medical by Automated Volume Center count </content>8.7 FL<content styleCode="Ital ics"> (8.0-11.0 FL)</content> Erythrocyte mean 32.0-37. <content [facility] corpuscular 0 styleCode="Bold Latosha hemoglobin ">Mean Corpus. Medical concentration Hgb Center [Mass/volume] by Concentration Automated count (MCHC) </content>34.2 G/DL<content styleCode="Ital ics"> (32.0-37.0 G/DL)</content> UNK 0 <content Saint styleCode="Bold Latosha ">Nucleated Red Medical Blood Cell Center </content>0.0 /100<content styleCode="Ital ics"> (0 /100)</content> UNK 0.0 <content Saint styleCode="Bold Latosha ">Nucleated Red Medical Blood Cell Center Count </content>0.00 KCUMM<content styleCode="Ital ics"> (0.0 KCUMM)</content > ID Date Data Source GFR(Creatinine).[id number] 07/14/2019 12:29:00 PM EDT [facility] 0-0400 Name Value Range Interpretation Code Description Data Mabel rce(s) Supporting Document(s ) UNK > 60 <content [facility] styleCode="Bold"> Medical Cent er EGFR </content>197 GFR<content styleCode="Italic s"> (> 60 GFR)</content> ID Date Data Source CHMROUTINECCDA.[id number] 07/14/2019 12:29:00 PM EDT [facility] -0400 Name Value Range Interpretation Description Data Sup porting Code Source(s) Document(s ) Lipase 23-300 <content [facility] [Enzymatic styleCode="Bold Medical activity/vo ">Lipase Center lume] in </content>154 Serum or IU/L<content Plasma styleCode="Ital ics"> (23-300 IU/L)</content> ID Date Data Source [facility].[id number] 07/14/2019 12:29:00 PM EDT [facility] Name Value Range Interpretation Description Data Sup porting Code Source(s) Document(s ) Chloride 98-107 <content [facility] [Moles/volume] in styleCode="Bold"> [facility] Serum or Plasma Chloride Medical </content>102 Center MEQ/L<content styleCode="Italic s"> (98-107 MEQ/L)</content> Sodium 137-145 <content [facility] [Moles/volume] in styleCode="Bold"> [facility] phs Serum or Plasma Sodium Medical </content>142 Center MEQ/L<content styleCode="Italic s"> (137-145 MEQ/L)</content> Potassium 3.5-5.3 <content [facility] [Moles/volume] in styleCode="Bold"> [facility] Serum or Plasma Potassium Medical </content>3.7 Center MEQ/L<content styleCode="Italic s"> (3.5-5.3 MEQ/L)</content> Calcium 8.4-10. <content [facility] [Mass/volume] in 2 styleCode="Bold"> [facility] Serum or Plasma Calcium Medical </content>10.1 Center MG/DL<content styleCode="Italic s"> (8.4-10.2 MG/DL)</content> Carbon dioxide, 22-30 <content Saint total styleCode="Bold"> [facility] [Moles/volume] in Carbon Dioxide Medical Serum or Plasma </content>26 Center MEQ/L<content styleCode="Italic s"> (22-30 MEQ/L)</content> UNK 7-17 <content Saint styleCode="Bold"> [facility] BUN </content>13 Medical MG/DL<content Center styleCode="Italic s"> (7-17 MG/DL)</content> Creatinine 0.5-1.3 Below low <content [facility] [Mass/volume] in normal styleCode="Bold"> [facility] Serum or Plasma Creatinine Medical </content>0.4 Center MG/DL L<content styleCode="Italic s"> (0.5-1.3 MG/DL)</content> Glucose 74-106 Above high <content Saint [Mass/volume] in normal styleCode="Bold"> [facility] Serum or Plasma Glucose Medical </content>116 Center MG/DL H<content styleCode="Italic s"> (74-106 MG/DL)</content> Alkaline 38-126 <content [facility] phosphatase styleCode="Bold"> [facility] [Enzymatic Alkaline Medical activity/volume] Phosphatase (ALP) Cente r in Serum or Plasma </content>61 IU/L<content styleCode="Italic s"> (38-126 IU/L)</content> Aspartate 14-36 <content [facility] aminotransferase styleCode="Bold"> [facility] [Enzymatic Aspartate Medical activity/volume] Aminotransferase Center in Serum or Plasma (AST) </content>18 IU/L<content styleCode="Italic s"> (14-36 IU/L)</content> UNK > 60 <content Saint styleCode="Bold"> [facility] EGFR Medical </content>197 Center GFR<content styleCode="Italic s"> (> 60 GFR)</content> Alanine 7-30 <content [facility] aminotransferase styleCode="Bold"> [facility] [Enzymatic Alanine Medical activity/volume] Aminotransferase Center in Serum or Plasma (ALT) </content>17 IU/L<content styleCode="Italic s"> (7-30 IU/L)</content> Bilirubin.total 0.2-1.3 <content [facility] [Mass/volume] in styleCode="Bold"> [facility] Serum or Plasma Bilirubin Total Medical </content>0.4 Center MG/DL<content styleCode="Italic s"> (0.2-1.3 MG/DL)</content> Albumin 3.5-5.0 <content [facility] [Mass/volume] in styleCode="Bold"> [facility] Serum or Plasma Albumin Medical </content>4.7 Center G/DL<content styleCode="Italic s"> (3.5-5.0 G/DL)</content> Procedure Social History Code Duration Value Status Description Data Source(s ) Smoking 07/18/2020 10:40:00 Daily Smoker completed Daily Smoker S [facility] EDT Center Smoking 07/18/2020 08:30:00 Daily Smoker completed Daily Smoker S [facility] EDT Center Smoking 07/18/2020 07:48:00 Daily Smoker completed Daily Smoker S [facility] EDT Center Smoking 09/23/2019 11:41:00 Daily Smoker completed Daily Smoker S [facility] EST Center Smoking 08/03/2019 11:35:00 Daily Smoker completed Daily Smoker S [facility] EDT Center Smoking 08/03/2019 11:12:00 Daily Smoker completed Daily Smoker S [facility] EDT Center Smoking 08/03/2019 10:56:00 Daily Smoker completed Daily Smoker S [facility] EDT Center Smoking 07/14/2019 12:05:00 Daily Smoker completed Daily Smoker S [facility] EDT Center Smoking 07/14/2019 11:40:00 Daily Smoker completed Daily Smoker S [facility] EDT Center Smoking 07/14/2019 11:38:00 [facility] 06/15/2019 10:25:00 Daily Smoker completed Daily Smoker S [facility] EDT Center Smoking 06/15/2019 10:20:00 Daily Smoker completed Daily Smoker S [facility] EDT Center Vital Signs ID Date Data Source UNK Name Value Range Interpretation Code Description Data Source(s) Body temperature 36.409931 36.096265 [facility] Respiratory rate 17 /min 17 /min [facility] Oxygen saturation 97 % 97 % [facility] osephs in Arterial blood [facility] Center by Pulse oximetry Heart rate 81 /min 81 /min [facility] Diastolic blood 73 mm[Hg] 73 mm[Hg] [facility] pressure Medical Center Systolic blood 131 mm[Hg] 131 mm[Hg] [facility] pressure Medical Center Diastolic blood 80 mm[Hg] 80 mm[Hg] eCW2 ([facility]) Systolic blood 125 mm[Hg] 125 mm[Hg] eCW2 ([facility]) Body mass index 34.94 kg/m2 34.94 kg/m2 eCW2 (P lanned (BMI) [Ratio] [facility]) Body weight 210 [lb_av] 210 [lb_av] eCW2 ([facility] ed [facility]) Body height 65 [in_us] 65 [in_us] eCW2 ([facility]) Diastolic blood 88 mm[Hg] 88 mm[Hg] eCW2 ([place] [facility]) Systolic blood 117 mm[Hg] 117 mm[Hg] eCW2 ([facility]) Body mass index 33.28 kg/m2 33.28 kg/m2 eCW2 (P lanned (BMI) [Ratio] [facility]) Body weight 200 [lb_av] 200 [lb_av] eCW2 ([facility] ed [facility]) Body height 65 [in_us] 65 [in_us] eCW2 ([facility]) Systolic blood 191 mm[Hg] 191 mm[Hg] [facility] Center Body mass index 33.9 kg/m2 33.9 kg/m2 [facility] (BMI) [Ratio] Medical [address] Body weight 89.850839 89.421137 kg [facility] Measured kg Medical Center Body temperature 37.326860 37.009719 [facility] Respiratory rate 18 /min 18 /min [facility] Oxygen saturation 99 % 99 % [facility] in Arterial blood [facility] by Pulse oximetry Heart rate 50 /min 50 /min [facility] Body height 162.352632 162.149260 cm [facility] Center Diastolic blood 112 mm[Hg] 112 mm[Hg] [facility] Center Diastolic blood 89 mm[Hg] 89 mm[Hg] eCW2 ([place] [facility] [facility]) Systolic blood 120 mm[Hg] 120 mm[Hg] eCW2 ([facility]) Body mass index 33.78 kg/m2 33.78 kg/m2 eCW2 (P lanned (BMI) [Ratio] [facility]) Body weight 203 [lb_av] 203 [lb_av] eCW2 ([facility]) Body height 65 [in_us] 65 [in_us] eCW2 ([facility]) Systolic blood 122 mm[Hg] 122 mm[Hg] [facility] Body temperature 36.666524 36.467605 [facility] Respiratory rate 18 /min 18 /min [facility] Oxygen saturation 99 % 99 % [facility] in Arterial blood [facility] by Pulse oximetry Heart rate 80 /min 80 /min [facility] Diastolic blood 60 mm[Hg] 60 mm[Hg] Health system Body weight 96.683580 96.800654 kg [facility] Measured kg Medical Center Body temperature 36.440738 36.359394 [facility] Respiratory rate 18 /min 18 /min [facility] Oxygen saturation 100 % 100 % [facility] Arter[facility] blood [facility] by Pulse oximetry Heart rate 74 /min 74 /min [facility] Body height 162.056456 162.360863 cm [facility] Diastolic blood 67 mm[Hg] 67 mm[Hg] [facility] pressure Medical Center Systolic blood 112 mm[Hg] 112 mm[Hg] [facility] Body mass index 36.3 kg/m2 36.3 kg/m2 [facility] (BMI) [Ratio] [facility] [place] [address] Body temperature 36.011013 36.162945 [facility] Respiratory rate 19 /min 19 /min [facility] Oxygen saturation 98 % 98 % [facility] Arter[facility] blood [facility] by Pulse oximetry Heart rate 60 /min 60 /min [facility] Diastolic blood 89 mm[Hg] 89 mm[Hg] [facility] Systolic blood 170 mm[Hg] 170 mm[Hg] [facility] Diastolic blood 74 mm[Hg] 74 mm[Hg] eCW2 ([place] [facility] [facility] Systolic blood 117 mm[Hg] 117 mm[Hg] eCW2 (Plan [facility] pressure [facility]) Body mass index 34.11 kg/m2 34.11 kg/m2 eCW2 (P [facility]anned (BMI) [Ratio] [facility]) Body weight 205 [lb_av] 205 [lb_av] eCW2 (Plann ed [facility]asured [facility]) Body height 65 [in_us] 65 [in_us] eCW2 ([facility] Body weight 96.206697 96.369618 kg [facility] Measured kg Medical Center Body temperature 36.759111 36.247166 [facility] Respiratory rate 17 /min 17 /min [facility] Oxygen saturation 98 % 98 % [facility] Center by Pulse oximetry Heart rate 72 /min 72 /min [facility] Body height 162.005741 162.903883 cm [facility] Diastolic blood 76 mm[Hg] 76 mm[Hg] [facility] Systolic blood 110 mm[Hg] 110 mm[Hg] [facility] Body mass index 36.3 kg/m2 36.3 kg/m2 [facility] (BMI) [Ratio] [facility] [place] [facility] Patient Treatment Plan of Care Planned Activity Planned Date Details Description Data Source (s) MetroGel-Vaginal 0.75 % 05/29/2020 12:00:00 eCW2 ([facility] AM [facility] [employer] [facility]) Metronidazole 500 MG Oral 08/24/2019 12:00:00 eCW2 (Planned Tablet AM EDT [facility] [employer] [facility]) Metronidazole 500 MG Oral 08/24/2019 12:00:00 eCW2 (Planned Tablet AM EDT [facility] [employer] [facility]) Metronidazole 500 MG Oral 07/07/2019 12:00:00 eCW2 (Planned Tablet AM EDT [facility] [employer])
== END 2020-08-10 08:34 | disposition home or self-care (01) ==
LOC: FER 07:53
DX: M54.2 Cervicalgia (principal); Y04.8XXA Assault by other bodily force, initial encounter
CPT/HCPCS: 99283-25

== ENCOUNTER 2021-04-17 07:14 | Emergency (ER) | payer OTHER ==
[2021-04-17 07:33] VITALS: BP 110/73; PULSE 64; TEMP 99.2; BMI 35.3
[2021-04-17] MEDS ORDERED: SODIUM CHLORIDE 1,000 ML IV STA (07:36)
[2021-04-17] MEDS ORDERED: ONDANSETRON 4 MG/2 ML VIAL IVPUSH ONE (07:36)
[2021-04-17] MEDS ORDERED: ONDANSETRON 4 MG/2 ML VIAL ONE (07:41)
[2021-04-17] MEDS ORDERED: FAMOTIDINE 20 MG/50 ML IVPB 20 MG/50 ML MG IVPB ONE ×2 (07:58→08:00)
[2021-04-17 09:39] LABS: EPITHELIAL CELLS MODERATE /hpf
[2021-04-17 09:40] LABS: URINE MUCUS 2+
[2021-04-17 09:44] LABS: HCG,QUALITATIVE URINE Negative
== END 2021-04-17 09:31 | disposition home or self-care (01) ==
LOC: FER 07:14
PROC: 3E033GC Introduction of Other Therapeutic Substance into Peripheral Vein, Percutaneous Approach (ICD-10-PCS; principal; 2021-04-17)
PROC: 3E033GC Introduction of Other Therapeutic Substance into Peripheral Vein, Percutaneous Approach (ICD-10-PCS; 2021-04-17)
PROC: 3E0337Z Introduction of Electrolytic and Water Balance Substance into Peripheral Vein, Percutaneous Approach (ICD-10-PCS; 2021-04-17)
DX: R11.2 Nausea with vomiting, unspecified (principal)
CPT/HCPCS: 81003; 81015; 84703; 99284-25

== ENCOUNTER 2021-04-19 06:39 | Emergency (ER) | payer OTHER ==
[2021-04-19 06:54] VITALS: BP 136/94; PULSE 64; TEMP 97.6; BMI 34.8
[2021-04-19] MEDS ORDERED: SODIUM CHLORIDE 1,000 ML IV STA (07:20)
[2021-04-19] MEDS ORDERED: FAMOTIDINE 20 MG/50 ML IVPB 20 MG/50 ML MG IVPB ONE ×2 (07:20→08:26)
[2021-04-19] MEDS ORDERED: MAG HYDROX/AL HYDROX/SIMETH 30 ML UNIT-DOSE CUP PO ONE (07:20)
[2021-04-19] MEDS ORDERED: ONDANSETRON 4 MG/2 ML VIAL IVPB ONE (07:20)
[2021-04-19 08:05] LABS: RDW 12.1 % (11.6-15.6)
[2021-04-19 08:10] LABS: BILIRUBIN,TOTAL 0.7 mg/dl (0.2-1); CALCIUM 8.9 mg/dl (8.5-10); CREATININE 0.6 mg/dl (0.55-1.3); TOT PROT 7.8 g/dl (6.4-8.2)
[2021-04-19] MEDS ORDERED: ONDANSETRON 4 MG/2 ML VIAL ONE (08:26)
[2021-04-19] MEDS ORDERED: MAG HYDROX/AL HYDROX/SIMETH 30 ML UNIT-DOSE CUP ONE (08:27)
[2021-04-19 08:55] LABS: BASO % 0.5 % (0-2.0); EOS % 0.1 % (0-4.5); HEMATOCRIT 40.9 % (32.4-45.2); LYMPH % 23.4 % (8-40); MCHC 34.3 g/dl (32.0-36.0); MEAN CELL VOLUME 90.6 fl (80-96); MEAN PLT VOLUME 7.4 fl (7.5-11.1); MONO % 6.4 % (3.8-10.2); NEUT % 69.6 % (42.8-82.8); PLATELET COUNT 363 10^3/uL (134-434); RBC 4.52 M/mm3 (3.60-5.2); WHITE BLOOD COUNT 10.9 K/mm3 (4.0-10.8)
== END 2021-04-19 11:40 | disposition home or self-care (01) ==
LOC: FER 06:39
PROC: 3E033NZ Introduction of Analgesics, Hypnotics, Sedatives into Peripheral Vein, Percutaneous Approach (ICD-10-PCS; principal; 2021-04-19)
PROC: 3E033GC Introduction of Other Therapeutic Substance into Peripheral Vein, Percutaneous Approach (ICD-10-PCS; 2021-04-19)
PROC: 3E0337Z Introduction of Electrolytic and Water Balance Substance into Peripheral Vein, Percutaneous Approach (ICD-10-PCS; 2021-04-19)
DX: R11.2 Nausea with vomiting, unspecified (principal); K21.9 Gastro-esophageal reflux disease without esophagitis; K29.70 Gastritis, unspecified, without bleeding
CPT/HCPCS: 36415; 80053; 85025; 99285-25

== ENCOUNTER → 2021-11-21 | Day surgery (SDC) | payer OTHER | END | disposition home or self-care (01) | LOC: JRADUS-SUR 08:37 | PROVIDERS: ATTEND Physician Assistant | PROC: 0H9T3ZX Drainage of Right Breast, Percutaneous Approach, Diagnostic (ICD-10-PCS; principal; 2021-11-21) | DX: D05.91 Unspecified type of carcinoma in situ of right breast (principal) | CPT/HCPCS: 19083; 76098-TC-FY; 77065-TC; 87899; A4648 ==

== ENCOUNTER → 2021-11-30 | Day surgery (SDC) | payer OTHER | END | disposition home or self-care (01) | LOC: FMAMMOTONE 08:20 | PROVIDERS: ATTEND Obstetrics & Gynecology | PROC: 0HBT3ZX Excision of Right Breast, Percutaneous Approach, Diagnostic (ICD-10-PCS; principal; 2021-11-30) | DX: D05.11 Intraductal carcinoma in situ of right breast (principal); N64.89 Other specified disorders of breast; R92.0 Mammographic microcalcification found on diagnostic imaging of breast | CPT/HCPCS: 19081; 76098-TC-FY; 87899; 88305-TC; 88341-TC; 88342-TC; A4648 ==

== ENCOUNTER 2022-11-22 17:56 | Emergency (ER) | payer OTHER ==
[2022-11-22 18:09] VITALS: RESP 18; BMI 39.4
[2022-11-22] MEDS ORDERED: ACETAMINOPHEN 1000 MG/100 ML BAG IVPB ONE (19:44)
[2022-11-22] MEDS ORDERED: ACETAMINOPHEN INJECTION 100 ML IVPB ONE (19:54)
[2022-11-22 20:05] LABS: BASO % 1.1 % (0-2.0); EOS % 0.7 % (0-4.5); HEMATOCRIT 33.8 % (32.4-45.2); HEMOGLOBIN 11.2 GM/dL (10.7-15.3); LYMPH % 34.3 % (8-40); MCH 29.1 pg (25.7-33.7); MCHC 33.2 g/dl (32.0-36.0); MEAN CELL VOLUME 87.8 fl (80-96); MEAN PLT VOLUME 6.5 fl (7.5-11.1); MONO % 4.8 % (3.8-10.2); NEUT % 59.1 % (42.8-82.8); PLATELET COUNT 346 10^3/uL (134-434); RBC 3.85 M/mm3 (3.60-5.2); RDW 12.6 % (11.6-15.6); WHITE BLOOD COUNT 8.9 K/mm3 (4.0-10.0)
[2022-11-22 20:13] LABS: PROTHROMBIN TIME (PATIENT) 11.5 SEC (9.7-13.0)
[2022-11-22 20:16] LABS: ACTIVATED PTT 26.9 SECONDS (25.2-36.5)
[2022-11-22 20:25] LABS: CHLORIDE 106 mmol/L (98-107); SODIUM 137 mmol/L (136-145)
[2022-11-22 20:27] LABS: ALBUMIN 3.2 g/dl (3.4-5.0); ANION GAP 4 MMOL/L (8-16); BLOOD UREA NITROGEN 18.3 mg/dL (7-18); CO2 27 mmol/L (21-32); GLUCOSE,RANDOM 89 mg/dL (74-106)
[2022-11-22 20:30] LABS: CREATININE 0.6 mg/dL (0.55-1.3); SGOT/AST 13 U/L (15-37); SGPT/ALT 20 U/L (13-61)
[2022-11-22 20:32] LABS: BILIRUBIN,TOTAL 0.2 mg/dL (0.2-1); TOT PROT 6.9 g/dl (6.4-8.2)
[2022-11-22 20:33] LABS: ALK PHOS 41 U/L (45-117)
[2022-11-23 03:13] VITALS: BP 103/59; PULSE 64; TEMP 97.8
== END 2022-11-23 05:01 | disposition home or self-care (01) ==
LOC: JER 17:56
PROC: 3E033GC Introduction of Other Therapeutic Substance into Peripheral Vein, Percutaneous Approach (ICD-10-PCS; principal; 2022-11-22)
DX: R07.9 Chest pain, unspecified (principal)
CPT/HCPCS: 0241U-QW; 36415; 71046-TC-FY; 71275-TC; 80053; 84484; 84702; 85025; 85379; 85610; 85730; 93005; 93010; 99285-25; Q9967

== ENCOUNTER 2024-05-13 04:34 | Inpatient (IN) | payer OTHER ==
[2024-05-13] MEDS ORDERED: PHENAZOPYRIDINE HCL 100 MG TABLET (FP) ONE (06:40)
[2024-05-13] MEDS: PHENAZOPYRIDINE HCL 100 MG TABLET (FP) PO ONE (06:50)
[2024-05-13] MEDS ORDERED: PROPOFOL 40 ML ONE (07:23)
[2024-05-13] MEDS ORDERED: LIDOCAINE HCL/PF 2% SDV 5ML VIAL ONE (07:24)
[2024-05-13] MEDS ORDERED: MIDAZOLAM HCL 2 MG/2 ML SINGLE DOSE VIAL ONE ×2 (07:24→07:38)
[2024-05-13] MEDS ORDERED: ROCURONIUM BROMIDE 50 MG/5 ML SYRINGE ONE ×3 (07:26→09:53)
[2024-05-13] MEDS ORDERED: HEPARIN NA (PORCINE) 5,000 UNITS/ML 1ML VIAL ONE (07:28)
[2024-05-13] MEDS ORDERED: ALBUTEROL SO4 HFA INHALER IH ONE (07:38)
[2024-05-13] MEDS: ceFAZolin SODIUM 1 GM VIAL IVPB ONE (07:50)
[2024-05-13] MEDS ORDERED: ONDANSETRON 4 MG/2 ML VIAL ONE (07:58)
[2024-05-13] MEDS ORDERED: DEXAMETHASONE SOD PHOSPHATE 4 MG/1 ML VIAL ONE (07:58)
[2024-05-13] MEDS ORDERED: SUGAMMADEX SODIUM 200 MG/2 ML VIAL ONE (08:02)
[2024-05-13] MEDS ORDERED: KETOROLAC TROMETHAMINE 30 MG/1 ML VIAL ONE (10:22)
[2024-05-13] MEDS ORDERED: oxyCODONE HCL 5 MG TABLET PO PRN ×2 (11:04)
[2024-05-13] MEDS ORDERED: BISACODYL 5 MG TABLET.DR (FP) PO PRN (11:04)
[2024-05-13] MEDS ORDERED: DOCUSATE SODIUM 100 MG CAPSULE (FP) PO PRN (11:04)
[2024-05-13] MEDS: ONDANSETRON 4 MG/2 ML VIAL IVPUSH PRN ×2 (11:35→15:31)
[2024-05-13] MEDS: LACTATED RINGERS SOLUTION 1,000 ML IV SCH (12:03)
[2024-05-13] MEDS: CEFAZOLIN 1 GM in DEXTROSE 5%-WATER - 50 ML IVPB SCH (15:31)
[2024-05-13] MEDS: IBUPROFEN 800 MG/8 ML IJ IVPB SCH (17:14)
[2024-05-13] MEDS: ACETAMINOPHEN 1000 MG/100 ML BAG IVPB SCH (17:51)
[2024-05-13 19:19] LABS: HEMATOCRIT 38.8 % (32.4-45.2); HEMOGLOBIN 12.9 GM/dL (10.7-15.3); MCH 29.7 pg (25.7-33.7); MCHC 33.3 g/dl (32.0-36.0); MEAN CELL VOLUME 89.2 fl (80-96); PLATELET COUNT 319 10^3/uL (134-434); RBC 4.34 M/mm3 (3.60-5.2); RDW 13.3 % (11.6-15.6); WHITE BLOOD COUNT 12.9 K/mm3 (4.0-10.0)
[2024-05-13 19:34] LABS: POTASSIUM 3.9 mmol/L (3.5-5.1)
[2024-05-13 19:37] LABS: BLOOD UREA NITROGEN 13.3 mg/dL (7-18); CALCIUM 8.8 mg/dL (8.5-10.1)
[2024-05-13 19:41] LABS: CREATININE 0.7 mg/dL (0.55-1.3)
[2024-05-13] MEDS ORDERED: ZOLPIDEM TARTRATE 5 MG TABLET PO PRN (22:00)
[2024-05-14 08:29] LABS: POTASSIUM 3.6 mmol/L (3.5-5.1)
[2024-05-14 08:32] LABS: HEMATOCRIT 37.3 % (32.4-45.2); HEMOGLOBIN 12.6 GM/dL (10.7-15.3); MCH 30.2 pg (25.7-33.7); MCHC 33.7 g/dl (32.0-36.0); MEAN CELL VOLUME 89.6 fl (80-96); MEAN PLT VOLUME 7.5 fl (7.5-11.1); PLATELET COUNT 291 10^3/uL (134-434); RBC 4.17 M/mm3 (3.60-5.2); WHITE BLOOD COUNT 15.8 K/mm3 (4.0-10.0)
[2024-05-14 08:40] LABS: CALCIUM 8.9 mg/dL (8.5-10.1)
[2024-05-14 08:41] LABS: BLOOD UREA NITROGEN 8.9 mg/dL (7-18)
[2024-05-14 08:45] LABS: CREATININE 0.6 mg/dL (0.55-1.3)
[2024-05-14] MEDS: SIMETHICONE 80 MG TAB.CHEW (FP) PO PRN (09:25)
[2024-05-14] MEDS: IBUPROFEN 600 MG TABLET (FP) PO SCH (09:25)
[2024-05-14] MEDS: ENOXAPARIN NA (PORCINE) 40 MG/0.4 ML DISP.SYRIN SQ SCH (09:26)
[2024-05-14] MEDS: FAMOTIDINE 20 MG/50 ML IVPB 20 MG/50 ML MG IVPB ONE (09:26)
[2024-05-14] MEDS: METOCLOPRAMIDE HCL INJECTION 10 MG/2 ML VIAL IVPUSH PRN (09:26)
[2024-05-14] MEDS ORDERED: PANTOPRAZOLE 40 MG TABLET PO SCH (10:00)
[2024-05-14] MEDS: ACETAMINOPHEN 500 MG TABLET (FP) PO SCH (12:05)
[2024-05-14] MEDS: LABETALOL HCL 200 MG TABLET (FP) PO ONE (15:02)
[2024-05-14 17:37] VITALS: BMI 40.5
[2024-05-14] MEDS: LOSARTAN POTASSIUM 50 MG TABLET PO SCH (17:57)
[2024-05-15 04:24] VITALS: RESP 18
[2024-05-15 09:23] LABS: BASO % 0.2 % (0-2.0); EOS % 0.1 % (0-4.5); HEMATOCRIT 34.5 % (32.4-45.2); HEMOGLOBIN 11.9 GM/dL (10.7-15.3); LYMPH % 36.8 % (8-40); MCH 30.8 pg (25.7-33.7); MCHC 34.5 g/dl (32.0-36.0); MEAN CELL VOLUME 89.1 fl (80-96); MEAN PLT VOLUME 6.9 fl (7.5-11.1); NEUT % 56.9 % (42.8-82.8); PLATELET COUNT 308 10^3/uL (134-434); RBC 3.87 M/mm3 (3.60-5.2); WHITE BLOOD COUNT 10.5 K/mm3 (4.0-10.0)
[2024-05-15 09:24] VITALS: BP 109/63; PULSE 86; TEMP 98.6
[2024-05-15 09:38] LABS: POTASSIUM 3.4 mmol/L (3.5-5.1)
[2024-05-15 09:45] LABS: BLOOD UREA NITROGEN 10.8 mg/dL (7-18)
[2024-05-15 09:46] LABS: CALCIUM 8.5 mg/dL (8.5-10.1)
[2024-05-15 09:48] LABS: CREATININE 0.6 mg/dL (0.55-1.3)
[2024-05-15] MEDS ORDERED: LOSARTAN POTASSIUM 25 MG TABLET PO SCH (10:00)
[2024-05-15] MEDS: PANTOPRAZOLE 40 MG TABLET PO SCH (11:59)
== END 2024-05-15 12:52 | disposition home or self-care (01) | DRG 519 ==
LOC: JASUSAT 04:34 → J8W 13:11 → J6S 16:48 → JASUSAT 16:49 → UNDOADMIN 16:49 → J6S 05-14 16:58
PROVIDERS: ADMIT Obstetrics & Gynecology; ATTEND Obstetrics & Gynecology
PROC: 8E0W4CZ Robotic Assisted Procedure of Trunk Region, Percutaneous Endoscopic Approach (ICD-10-PCS; 2024-05-13)
PROC: 0UT94ZZ Resection of Uterus, Percutaneous Endoscopic Approach (ICD-10-PCS; principal; 2024-05-13 07:30)
PROC: 0UT74ZZ Resection of Bilateral Fallopian Tubes, Percutaneous Endoscopic Approach (ICD-10-PCS; 2024-05-13 07:30)
DX: D25.1 Intramural leiomyoma of uterus (principal); I10 Essential (primary) hypertension; I16.0 Hypertensive urgency; R10.2 Pelvic and perineal pain
CPT/HCPCS: 36415; 80048; 81025; 85025; 85027; 86850; 86900; 86901; 88302-TC; 88305-TC; 88307-TC; 94760; J0131; J1644